=== PATIENT | female | born 1965 | race Hispanic/Latino ===

== ENCOUNTER 2021-05-30 18:24 | Emergency (ER) | payer SELFPAY ==
--- NOTE | 2021-05-30 19:47 | PC.NURSE ---
Pt called for xray. No answer from the WR.
== END 2021-05-31 05:27 | disposition left against medical advice (07) ==
LOC: ANHED 20:07
DX: Z53.21 Procedure and treatment not carried out due to patient leaving prior to being seen by health care provider (principal)
CPT/HCPCS: 99199

== ENCOUNTER 2023-07-06 10:49 | Emergency (ER) | payer OTHER, SELFPAY ==
[2023-07-06 11:06] VITALS: BP 109/71; PULSE 62; RESP 16; TEMP 36.4; O2SAT 100
--- NOTE | 2023-07-06 12:27 | ED.GENADULT ---
HPI - General Adult General Chief complaint: Abdominal Pain Stated complaint: diarrhea Time Seen by Provider: 07/06/23 12:13 Source: patient, RN notes reviewed and dispatch clerk Mode of arrival: ambulatory Limitations: no limitations History of Present Illness HPI narrative: Patient presents today complaining 3 day history of watery diarrhea, approximately 4 times per day. Denies blood or mucus in the stool. She does report some abdominal cramping just prior to bowel movements, but denies abdominal pain, fever, nausea or vomiting. Denies known sick contacts. She has been taking Pepto-Bismol without relief. Denies recent travel or known suspicious food intake. Related Data Home Medications Medication Instructions Recorded Confirmed atorvastatin 20 mg tablet mg 07/06/23 metformin 500 mg tablet mg 07/06/23 Allergies Allergy/AdvReac Type Severity Reaction Status Date / Time No Known Allergies Allergy Unknown Verified 07/06/23 12:15 Review of Systems Review of Systems: CONSTITUTIONAL: Denies body aches, fever, chills, or sweats. EYES: Denies visual changes, redness, or discharge. ENT: Denies rhinorrhea, congestion, sore throat, or otalgia. CARDIOVASCULAR: Denies chest pain, palpitations, or edema. RESPIRATORY: Denies cough or dyspnea. GASTROINTESTINAL: Denies abdominal pain, nausea, vomiting. + diarrhea GENITOURINARY: Denies dysuria or hematuria. SKIN: Denies rash, itching, or wounds. MUSCULOSKELETAL: Denies back pain, joint pain, or myalgia. NEUROLOGIC: Denies headache, numbness, tingling, or weakness. PSYCH: Denies depression or anxiety. [facility] Past Medical History Medical History (Updated 07/06/23 @ 12:33 by Yanelis Catalan, [facility], ) Diabetes High cholesterol Comments At time of signature, I have reviewed and agree with nursing past medical, surgical, social and family history unless otherwise noted. Please see nursing chart for further information. There is no relevant family history pertinent to the presenting complaint Exam Narrative: GENERAL: Well-appearing, well-nourished, and in no acute distress. HEAD: Normocephalic, atraumatic. EYES: EOMI. No redness or drainage. Conjunctivae normal. ENT: Mucous membranes pink and moist. NECK: Normal AROM. CHEST: No respiratory distress. Clear to auscultation. HEART: Regular rate and rhythm. No murmur appreciated. ABDOMEN: Soft, nontender, nondistended, normal active bowel sounds. EXTREMITIES: Normal range of motion. No edema. SKIN: Warm, dry, no rash. Capillary refill normal. Normal skin turgor. NEURO: No focal deficits. Alert and oriented x3. Gait steady. PSYCH: Normal affect. No signs of depression or anxiety. Course Course Level of Care: Express Care Visit Vital Signs Vital signs: Vital Signs Temperature 97.5 F L 07/06/23 11:06 Pulse Rate 62 07/06/23 11:06 Respiratory Rate 16 07/06/23 11:06 Blood Pressure 109/71 07/06/23 11:06 Pulse Oximetry 100 07/06/23 11:06 Oxygen Delivery Room Air 07/06/23 11:06 Temperature 97.5 F L 07/06/23 11:06 Pulse Rate 62 07/06/23 11:06 Respiratory Rate 16 07/06/23 11:06 Blood Pressure 109/71 07/06/23 11:06 Pulse Oximetry 100 07/06/23 11:06 Oxygen Delivery Room Air 07/06/23 11:06 Reviewed Medical Decision Making MDM Narrative Medical decision making narrative: Patient with acute diarrhea. Symptoms will likely improve in the next 3-4 days. Discussed Imodium if needed. Also discussed staying hydrated, and what symptoms would be appropriate for ER follow-up. Patient agrees with plan. No testing or prescription medications indicated at this time. Anticipatory guidance given. Differential Diagnosis Differential Diagnosis: Acute diarrhea, gastroenteritis, colitis, food poisoning Vital Signs Vital Signs: Vital Signs Temperature 97.5 F L 07/06/23 11:06 Pulse Rate 62 07/06/23 11:06 Respiratory Rate 16 07/06/23 11:06 Blood Pressure 109
== END 2023-07-06 12:36 | disposition home or self-care (01) ==
PROVIDERS: Emergency Provider Nurse Practitioner
DX: R19.7 Diarrhea, unspecified (principal); E11.9 Type 2 diabetes mellitus without complications; Z79.84 Long term (current) use of oral hypoglycemic drugs; E78.00 Pure hypercholesterolemia, unspecified
CPT/HCPCS: 99211; G0463